=== PATIENT | male | born 1975 | race Caucasian/White ===

== ENCOUNTER 2021-05-23 11:10 | Emergency (ER) | payer OTHER ==
[~2021-05-23] VITALS: Ht 180.3 cm; Wt 97.5 kg
--- OUTSIDE RECORDS SUMMARY | 2021-05-23 11:14 | XMS ---
PreManage Notification: NATTY WEEMS Security Airline Pilot Events 1 event(s) in the past 18 months Most recent security events: Elopement at [facility] 04/25/2021 13:42 - Other Details: PATIENT LWBS CRITERIA MET - PDMP - ED - Positive COVID-19 Lab Result - [facility] - [facility] - 2 Visits in 30 Days CARE PROVIDERS RAVEN HERNANDEZ Quill Winder/Sawmill Worker Current PHONE: [phone] PRUDENCE GÓMEZ Quill Winder/Sawmill Worker Current PHONE: [phone] JENY MILLER Regional Sales Associate Current PHONE: Unknown ANITA MERCADO Nurse Practitioner: Family Current PHONE: Unknown MAYE BEVERLY Quill Winder/Sawmill Worker Current PHONE: [phone] Greg has no Care Guidelines for this patient. Meghna VISIT COUNT ([address] [facility] 2 [facility] TOTAL 5 NOTE: Visits indicate total known visits. ED/UCC VISIT TRACKING (12 MO.) 05/23/2021 11:11 [facility] TYPE: Emergency COMPLAINT: - R SHOULDER PAIN 04/25/2021 13:42 [facility] TYPE: Emergency COMPLAINT: - R SHOULDER/NECK PAIN 10/21/2020 11:04 Jay [facility] TYPE: Emergency DIAGNOSES: - Other muscle spasm - Headache, unspecified - Headache (Adult - Re-evaluation) - Other muscle spasm - Headache - Strain of muscle, fascia and tendon at neck level, subsequent encounter - Headache, unspecified - Strain of muscle, fascia and tendon at neck level, subsequent encounter 10/19/2020 10:32 [facility] TYPE: Emergency DIAGNOSES: - Strain of muscle, fascia and tendon at neck level, initial encounter - Muscle spasm of back - Migraine - Tension-type headache, unspecified, not intractable 07/27/2020 07:33 [facility] TYPE: Emergency DIAGNOSES: - Headache, unspecified - Viral infection, unspecified - Body Aches INPATIENT VISIT TRACKING (12 MO.) No inpatient visits to display in this time frame [email or web address]
[2021-05-23] MEDS ORDERED: OMEPRAZOLE20 MG PO (13:20)
[2021-05-23] MEDS ORDERED: PREDNISONE20 MG PO (14:06)
[2021-05-23] MEDS ORDERED: HYDROCODON-ACE1 EA10 PO (14:06)
== END 2021-05-23 14:15 | disposition home or self-care (01) ==
LOC: ED 11:10
DX: M54.12 Radiculopathy, cervical region (principal); Z79.899 Other long term (current) drug therapy
CPT/HCPCS: 99283